=== PATIENT | male | born 2000 | race Hispanic/Latino ===

== ENCOUNTER 2022-09-28 15:23 | Emergency (ER) | payer OTHER ==
--- NOTE | 2022-09-28 16:12 | RAD REPORT ---
EXAM DESCRIPTION: CT - CTHCSPWOC - 09/28/2022 4:05 pm CLINICAL HISTORY: head injury COMPARISON: No comparisons TECHNIQUE: Axial 5 mm thick images of the head were obtained. Axial 2 mm thick images of the cervic al spine were obtained with sagittal and coronal reconstruction images generated and reviewed. All CT scans are performed using dose optimization technique as appropriate and may include automated exposure control or mA/KV adjustment according to patient size. FINDINGS: No intracranial hemorrhage, mass, edema or acute intracranial finding. No extra-axial flui d collections. Mastoid air cells and paranasal sinuses are clear acute finding. No globe or orbit abn ormality seen. Cervical body height and alignment are normal. No disk space narrowing. No fracture or acute bony abn ormality. Central canal detail is inherently limited. No paraspinal mass or hematoma. IMPRESSION: Negative CT head examination for acute or significant finding. Negative CT cervical spine examination for acute or significant finding.
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
[2022-09-28] MEDS ORDERED: LIDOCAINE 1% W/EPI 1:100,000 30 ML VIAL ONE (16:33)
[2022-09-28] MEDS ORDERED: LIDOCAINE 1% 20 ML MDV ONE (16:35)
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
[2022-09-28] MEDS ORDERED: ACETAMINOPHEN 500 MG TAB ONE (17:46)
[2022-09-28] MEDS ORDERED: IBUPROFEN 400 MG TAB ONE (17:46)
[2022-09-28 18:08] VITALS: TEMP 98
[2022-09-28 18:09] VITALS: BP 115/68; O2SAT 98
== END 2022-09-28 17:55 | disposition home or self-care (01) ==
LOC: ER 15:23
PROC: 0JQ00ZZ Repair Scalp Subcutaneous Tissue and Fascia, Open Approach (ICD-10-PCS; principal; 2022-09-28)
DX: S01.01XA Laceration without foreign body of scalp, initial encounter (principal)
CPT/HCPCS: 70450; 70486; 72125; 76377; 99284